=== PATIENT | male | born 1995 | race Hispanic/Latino ===

== ENCOUNTER 2018-01-08 02:50 | Emergency (ER) | payer BC ==
[2018-01-08 03:15] VITALS: BP 135/74; TEMP 99
[2018-01-08] MEDS ORDERED: Sodium Chloride 0.9% 1,000 ML IV STA (04:06)
--- NOTE | 2018-01-08 04:09 | ED PDOC ---
HPI: General Adult Time Seen by Provider: 01/08/18 03:50 Chief Complaint (Nursing): Abnormal Skin Integrity Chief Complaint (Provider): skin infection History Per: Patient History/Exam Limitations: no limitations Onset/Duration Of Symptoms: Days (2) Current Symptoms Are (Timing): Still Present Additional History Per: Patient Additional Complaint(s): 22 y/o male presents for evaluation of possible skin infection x 2 days. Patient states he noticed painful bumps to pop up on hands, thigh x 2 days. Associated chills, tactile fever. Patient notes similar appearance to inner left thigh 1 month ago, went to urgent care and was started on Doxycycline and Mupirocin with improvement. Patient is a college student. Denies fever, nausea/ vomiting, drainage from sites. Patient also notes redness to left foot 3rd digit, thinks he may have cut the nail too short. + drainage from site. Denies numbness/weakness left lower extremity, limitation of movement. Past Medical History Reviewed: Historical Data, Nursing Documentation, Vital Signs Vital Signs: Last Vital Signs Temp 99.0 F 01/08/18 03:07 Pulse 95 H 01/08/18 05:29 Resp 17 01/08/18 05:29 BP 135/74 01/08/18 03:07 Pulse Ox 100 01/08/18 05:29 - Medical History PMH: No Chronic Diseases - Surgical History Surgical History: No Surg Hx - Family History Family History: States: No Known Family Hx - Living Arrangements Living Arrangements: Alone - Home Medications Home Medications: Ambulatory Orders Medication Instructions Recorded Clindamycin [Cleocin] 300 mg PO QID #39 cap 01/08/18 - Allergies Allergies/Adverse Reactions: Allergies Allergy/AdvReac Type Severity Reaction Status Date / Time Penicillins Allergy RASH Verified 01/08/18 03:15 Review of Systems ROS Statement: Except As Marked, All Systems Reviewed And Found Negative Musculoskeletal: Positive for: Foot Pain (left foot 3rd digit) Skin: Positive for: Lesions Physical Exam - Reviewed Nursing Documentation Reviewed: Yes Vital Signs Reviewed: Yes - Physical Exam Appears: Positive for: Well, Non-toxic, No Acute Distress Head Exam: Positive for: ATRAUMATIC, NORMAL INSPECTION, NORMOCEPHALIC Skin: Positive for: Rash (pustular lesions with surrounding erythema noted right volar forearm, left dorsal wrist, left inner thigh) ENT: Positive for: Normal ENT Inspection Cardiovascular/Chest: Positive for: Regular Rate, Rhythm Respiratory: Positive for: Normal Breath Sounds Gastrointestinal/Abdominal: Positive for: Normal Exam Extremity: Positive for: Normal ROM, Capillary Refill (<2 sec b/l LE), Other ( erythema, swelling left foot distal 3rd digit. + dried drainage left lateral nail bed; FROM) - Laboratory Results Result Diagrams: 01/08/18 04:10 01/08/18 04:10 - ECG O2 Sat by Pulse Oximetry: 98 - Progress ED Course And Treament: labs, IV fluids, IV clindamycin Patient educated on findings, discharged with rx Clindamycin. Advised derm, podiatry follow up. Return precautions given. Disposition - Clinical Impression Clinical Impression: Cellulitis Counseled Patient/Family Regarding: Studies Performed, Diagnosis, Need For Followup, Rx Given - Disposition Referrals: Podiatry Clinic [Outside] Disposition: Routine/Home Disposition Time: 05:55 Condition: STABLE Prescriptions: Clindamycin [Cleocin] 300 mg PO QID #39 cap Instructions: Cellulitis (Skin Infection), Adult (DC) Forms: [email or web address] ([place])
[2018-01-08 04:34] LABS: VENOUS BLOOD GAS PCO2 44 mmHg (40-60); VENOUS BLOOD GAS PO2 28 mm/Hg (30-55)
[2018-01-08 04:46] LABS: CALCIUM 9.6 mg/dL (8.4-10.2); GFR AFRICAN-AMERICAN > 60; GFR NON-AFRICAN AMERICAN > 60
[2018-01-08 04:59] LABS: ALB/GLOB RATIO 1.2 (1.0-2.1); ALBUMIN 5.1 g/dL (3.5-5.0); ALT/SGPT 50 U/L (21-72); AST/SGOT 83 U/L (17-59); BLOOD UREA NITROGEN 13 mg/dl (9-20)
[2018-01-08 05:10] LABS: BASO # 0.1 K/uL (0.0-0.2); BASO % 0.7 % (0.0-2.0); EOS # 0.3 K/uL (0.0-0.7); EOS % 2.1 % (0.0-4.0); LYMPH # 1.5 K/uL (1.0-4.3); LYMPH % 12.5 % (20.0-40.0); MEAN CELL VOLUME 89.7 fl (80.0-94.0); MEAN CORPUSCULAR HEMOGLOBIN 29.8 pg (27.0-31.0); MEAN CORPUSCULAR HGB CONC 33.2 g/dL (33.0-37.0); MEAN PLATELET VOLUME 8.4 fl (7.2-11.7); MONO % 8.5 % (0.0-10.0); NEUT # 9.2 K/uL (1.8-7.0); NEUT % 76.2 % (50.0-75.0); NRBC % 0.1 % (0.0-0.0); RBC 5.02 Mil/uL (4.40-5.90); RED CELL DISTRIBUTION WIDTH 13.1 % (11.5-14.5); WHITE BLOOD COUNT 12.1 K/uL (4.8-10.8)
[2018-01-08] MEDS ORDERED: Clindamycin 600mg/50ml NS 600 MG/50 ML BAG IVPB STA (05:19)
[2018-01-08 05:30] VITALS: PULSE 95; RESP 17
[2018-01-08 05:56] VITALS: O2SAT 98
--- NOTE | 2018-01-08 07:11 | CP.PCM.CON ---
History of Present Illness - History of Present Illness History of Present Illness: Podiatry Consult Note - Dr. Escobar 22 year old male patient unremarkable PMHx seen and evaluated for redness to left 3rd digit. Patient presented to ED due to red, painful bumps to his hands and thighs ongoing for 2 days. Patient states he has had a staph infection approximately 1 month ago, went to an urgent care facility for treatment, and received Rx Doxycycline and Mupirocin; patient believes this current infection resembles his previous staph infection. Patient states a few days ago he cut his left 3rd digit nail too short, and accidentally clipped his skin. Patient states he saw drainage from his 3rd digit however denies seeing any drainage today. Denies any pain to his 3rd digit. Offers no other complaints. Review of Systems - Review of Systems All systems: reviewed and no additional remarkable complaints except (as per HPI ) Past Patient History - Past Social History Smoking Status: Never Smoked - INTEGUMENTARY Hx Eczema: Yes - PSYCHIATRIC Hx Substance Use: No - SURGICAL HISTORY Hx Surgeries: No - ANESTHESIA Hx Anesthesia: No Meds Home Medications: Home Medication List Medication Instructions Recorded Confirmed Type Clindamycin [Cleocin] 300 mg PO QID #39 cap 01/08/18 Rx Allergies/Adverse Reactions: Allergies Allergy/AdvReac Type Severity Reaction Status Date / Time Penicillins Allergy RASH Verified 01/08/18 03:15 Physical Exam - Constitutional Appears: Well, Non-toxic, No Acute Distress - Extremities Exam Additional comments: LLE focused physical exam: VASC: DP and PT pulses palpable 2/4. CFT <3 seconds to all digit. Temperature gradient WNL. Nonpitting edema noted to 3rd digit. Mild increase in warmth to 3rd digit. Pedal hair growth appreciated. NEURO: Gross sensation intact. DERM: Erythema noted to distal half of 3rd digit; no drainage noted; no purulence noted; no fluctuance noted; pinpoint crusted lesion noted to lateral nail fold from previous cut. No open lesions noted. ORTHO: No pain on palpation 3rd digit - Neurological Exam Neurological exam: Alert, Oriented x3 - Psychiatric Exam Psychiatric exam: Normal Affect, Normal Mood Results - Vital Signs Recent Vital Signs: Last Vital Signs Temp 99.0 F 01/08/18 03:07 Pulse 95 H 01/08/18 05:29 Resp 17 01/08/18 05:29 BP 135/74 01/08/18 03:07 Pulse Ox 98 01/08/18 05:55 - Labs Result Diagrams: 01/08/18 04:10 01/08/18 04:10 Labs: Laboratory Results - last 24 hr 01/08/18 01/08/18 01/08/18 04:10 04:10 04:22 WBC 12.1 H RBC 5.02 Hgb 15.0 Hct 45.0 MCV 89.7 MCH 29.8 MCHC 33.2 RDW 13.1 Plt Count 239 MPV 8.4 Neut % (Auto) 76.2 H Lymph % (Auto) 12.5 L [place] % (Auto) 8.5 Eos % (Auto) 2.1 Baso % (Auto) 0.7 Neut # (Auto) 9.2 H Lymph # (Auto) 1.5 [place] # (Auto) 1.0 H Eos # (Auto) 0.3 Baso # (Auto) 0.1 pO2 28 L VBG pH 7.40 VBG pCO2 44 VBG HCO3 25.3 VBG Total CO2 28.7 H VBG O2 Sat (Calc) 59.0 VBG Base Excess 2.0 VBG Potassium 4.7 Glucose 99 Lactate 1.3 FiO2 21.0 Sodium 139 134.0 Potassium 5.8 H Chloride 100 103.0 Carbon Dioxide 24 Anion Gap 21 H BUN 13 Creatinine 0.9 Est GFR ( Amer) > 60 Est GFR (Non-Af Amer) > 60 Random Glucose 101 Calcium 9.6 Total Bilirubin 1.6 H AST 83 H ALT 50 Alkaline Phosphatase 52 Total Protein 9.3 H Albumin 5.1 H Globulin 4.3 H Albumin/Globulin Ratio 1.2 Venous Blood Potassium 4.7 Assessment & Plan - Assessment and Plan (Free Text) Assessment: 22M unremarkable PMHx with left 3rd digit cellulitis Plan: Patient seen and evaluted Discused with attending, Dr. Escobar Afebrile, WBC 12.1 No dressing needed as no open lesions noted Recommend clindamycin as patient allergic to PCN -Antibiotic choice given for skin infection to hands/thighs will likely cover infection to 3rd digit Patient to follow up in podiatry clinic next week Sunday, 01/16 for evaluation of 3rd digit infection Advised patient to return to ED if he develops worsening of symptoms, nausea, vomiting, fever, chills Stable for dc per podiatry Thank you for the consult, please reconsult podiatry as needed
== END 2018-01-08 06:41 | disposition home or self-care (01) ==
LOC: H.ER 02:50
DX: L08.9 Local infection of the skin and subcutaneous tissue, unspecified (principal); Z86.19 Personal history of other infectious and parasitic diseases; Z88.0 Allergy status to penicillin
CPT/HCPCS: 80053; 82803; 85025; 87040; 96361; 96365; 99282; J7040